=== PATIENT | male | born 1980 ===

== ENCOUNTER 2016-11-13 17:42 | Emergency (ER) | payer SELFPAY ==
[2016-11-13] MEDS ORDERED: Amoxicillin/Clavulanate TAB* 875 MG PO ONE (19:08)
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
== END 2016-11-13 19:25 | disposition home or self-care (01) ==
LOC: UCEAST 17:42
DX: S01.112A Laceration without foreign body of left eyelid and periocular area, initial encounter (principal); W22.8XXA Striking against or struck by other objects, initial encounter; Y93.9 Activity, unspecified; Y92.79 Other farm location as the place of occurrence of the external cause; Y99.0 Civilian activity done for income or pay; F17.210 Nicotine dependence, cigarettes, uncomplicated
CPT/HCPCS: 12011; 99202; A9270-GY; G0463

== ENCOUNTER 2018-06-20 07:43 | Emergency (ER) | payer OTHER ==
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
--- NOTE | 2018-06-20 08:29 | RAD ---
INDICATION: Chest pain. COMPARISON: There are no prior studies available for comparison. TECHNIQUE: Dual-energy inspiratory, expiratory and lateral films of the chest were obtained. FINDINGS: The heart is within normal limits in size. Mediastinal and hilar contours appear within normal limits. The lungs are clear. No pleural effusion or pneumothorax is seen. There is deformity of the medial right clavicle possibly related to an old healed fracture. IMPRESSION: NO EVIDENCE FOR ACTIVE CARDIOPULMONARY DISEASE.
[2018-06-20] MEDS ORDERED: Al Hydrox/Mg Hydrox/Simet LIQ* 30 ML UDC PO ONE (08:38)
[2018-06-20 09:10] VITALS: BP 104/53
== END 2018-06-20 10:06 | disposition home health service (06) ==
LOC: UCEAST 07:43
DX: R07.89 Other chest pain (principal); R50.9 Fever, unspecified; K21.9 Gastro-esophageal reflux disease without esophagitis; F17.200 Nicotine dependence, unspecified, uncomplicated
CPT/HCPCS: 71046; 93005; 99212; A9270-GY; G0463

== ENCOUNTER 2018-06-20 12:36 | Emergency (ER) | payer OTHER ==
[2018-06-20] MEDS ORDERED: Ketorolac INJ* 30 MG/ML 1 ML VIAL IV PUSH ONE (12:59)
[2018-06-20 13:13] LABS: ABS Basophils 0 10^3/ul (0-0.2); ABS Eosinophils 0 10^3/ul (0-0.6); ABS Lymphocytes 1.1 10^3/ul (1.0-4.8); ABS Monocytes 0.7 10^3/ul (0-0.8); ABS Neutrophils 5.3 10^3/ul (1.5-7.7); ABS Nucleated RBC 0 10^3/ul; Eosinophil % 0.1 % (0-6); Hematocrit 43 % (42-52); Hemoglobin 14.7 g/dl (14.0-18.0); Lymphocyte % 14.8 % (25-47); Mean Corpuscular HGB Conc 34 g/dl (31-36); Mean Corpuscular Hemoglobin 30 pg (27-31); Mean Corpuscular Volume 87 fL (80-94); Mean Platelet Volume 7.9 um3 (7.4-10.4); Nucleated Red Blood Cells % 0.2; Platelet Count 220 10^3/ul (150-450); Red Blood Count 4.97 10^6/ul (4.00-5.40); Red Cell Distribution Width 13 % (10.5-15); White Blood Count 7.2 10^3/ul (3.5-10.8)
[2018-06-20 13:35] LABS: INR 1.06 (0.77-1.02)
[2018-06-20 13:44] LABS: EGFR Non-African American 142.5 (>60)
--- NOTE | 2018-06-20 13:54 | ED ---
HPI Chest Pain - HPI Summary HPI Summary: This is scribe Timurnathaniel Hughes documenting for attending Rajinder Sorensen MD. A 38 y/o male presents to ED c/o mid-sternum chest pain/pressure. As per triage , "pt c/o mid sternal pain pt states has been building for a couple days, woke up in the night and was extreme". According to the patient, he has been experiencing severe chest pain since 0200. Additional symptoms include SOB, chills, and intermittent fever (on and Thursday, 2-3 days ago) with a temperature of 102 F. He describes the chest pain as he feels like his sternum is cracked. Initially, he thought he pulled a muscle, but the symptoms never subsided as with movement and deep breathes aggravates the pain. Patient denies any abdominal pain and swelling in legs. Furthermore, the pain was in his spine , neck and shoulder area, but then radiated to his chest. He also has nausea, vomiting and a headache. PMHx of ticks. The patient decreased his oral intake, and vomited at 0300 with only drinking water. No daily medications. PMHx of bone surgery and kidney stones. FHx MA (mother's side) and multiple myeloma ( father). SHx of no smoking, occasional ETOH, no recreational drugs. No known allergies. I, Dr. Sorensen personally performed the services described in this documentation as scribed in my presence and it is both accurate and complete. - History of Current Complaint Chief Complaint: EDChestPainROMI Time Seen by Provider: 06/20/18 12:52 Hx Obtained From: Patient Onset/Duration: Started Days Ago, Still Present Timing: Constant Initial Severity: Moderate Current Severity: Moderate Pain Intensity: 6 Pain Scale Used: 0-10 Numeric Chest Pain Location: Mid Sternal Chest Pain Radiates: Yes Chest Pain Radiates To:: Back, Shoulder, Neck Character: Pressure/Squeezing Aggravating Factor(s): Movement, Deep Breaths Alleviating Factor(s): Nothing Associated Signs and Symptoms: Positive: Chest Pain, Headaches, Shortness of Breath, Fever, Chills, Diaphoresis, Nausea, Vomiting - Allergy/Home Medications Allergies/Adverse Reactions: Allergies Allergy/AdvReac Type Severity Reaction Status Date / Time No Known Allergies Allergy Verified 06/20/18 12:44 Home Medications: Home Medications NK [No Home Medications Reported] 06/20/18 [History Confirmed 06/20/18] PMH/Surg Hx/FS Hx/Imm Hx Endocrine/Hematology History: Denies: Hx Diabetes, Hx Thyroid Disease Cardiovascular History: Denies: Hx Hypertension Respiratory History: Denies: Hx Asthma, Hx Chronic Obstructive Pulmonary Disease (COPD) GI History: Denies: Hx Ulcer - Surgical History Surgery Procedure, Year, and Place: FRACTURES Infectious Disease History: No Infectious Disease History: Denies: Hx Hepatitis, Hx Human Immunodeficiency Virus (HIV), Traveled Outside the [place] in Last 30 Days - Family History Known Family History: Positive: Other - cancer Negative: Cardiac Disease, Hypertension, Diabetes - Social History Alcohol Use: Occasionally Substance Use Type: Reports: None Smoking Status (MU): Light Every Day Tobacco Smoker Review of Systems Positive: Fever, Chills Positive: Chest Pain Positive: Shortness Of Breath Positive: Vomiting, Nausea. Negative: Abdominal Pain Positive: Other - NEGATIVE: Swelling in legs Positive: Headache All Other Systems Reviewed And Are Negative: Yes Physical Exam - Summary Physical Exam Summary: VITAL SIGNS: Reviewed. GENERAL: Patient is a well-developed and nourished male who is lying comfortable in the stretcher. Patient is not in any acute respiratory distress. HEAD AND FACE: No signs of trauma. No ecchymosis, hematomas or skull depressions. No sinus tenderness. EYES: PERRLA, EOMI x 2, No injected conjunctiva, no nystagmus. EARS: Hearing grossly intact. Ear canals and tympanic membranes are within normal limits. MOUTH: Oropharynx within normal limits. NECK: Supple, trachea is midline, no adenopathy, no JVD, no carotid bruit, no c- spine tenderness, neck with full ROM. CHEST: Chest pain reproducable with palpation LUNGS: Clear to auscultation bilaterally. No wheezing or crackles. CVS: Regular rate and rhythm, S1 and S2 present, no murmurs or gallops appreciated. ABDOMEN: Soft, non-tender. No signs of distention. No rebound no guarding, and no masses palpated. Bowel sounds are normal. EXTREMITIES: FROM in all major joints, no edema, no cyanosis or clubbing. NEURO: Alert and oriented x 3. No acute neurological deficits. Speech is normal and follows commands. SKIN: Dry and warm Triage Information Reviewed: Yes Vital Signs On Initial Exam: Initial Vitals Temp Pulse Resp BP Pulse Ox 98.3 F 90 16 123/73 98 06/20/18 12:44 06/20/18 12:44 06/20/18 12:44 06/20/18 12:44 06/20/18 12:44 Vital Signs Reviewed: Yes Diagnostics - Vital Signs Vital Signs Temp Pulse Resp BP Pulse Ox 06/20/18 12:44 98.3 F 90 16 123/73 98 - Laboratory Lab Results: Lab Results 06/20/18 06/20/18 06/20/18 Range/Units 13:03 13:03 13:03 WBC 7.2 (3.5-10.8) 10^3/ul RBC 4.97 (4.00-5.40) 10^6/ul Hgb 14.7 (14.0-18.0) g/dl Hct 43 (42-52) % MCV 87 (80-94) fL MCH 30 (27-31) pg MCHC 34 (31-36) g/dl RDW 13 (10.5-15) % Plt Count 220 (150-450) 10^3/ul MPV 7.9 (7.4-10.4) um3 Neut % (Auto) 74.3 (38-83) % Lymph % (Auto) 14.8 L (25-47) % Peach % (Auto) 10.3 H (0-7) % Eos % (Auto) 0.1 (0-6) % Baso % (Auto) 0.5 (0-2) % Absolute Neuts (auto) 5.3 (1.5-7.7) 10^3/ul Absolute Lymphs (auto) 1.1 (1.0-4.8) 10^3/ul Absolute Monos (auto) 0.7 (0-0.8) 10^3/ul Absolute Eos (auto) 0 (0-0.6) 10^3/ul Absolute Basos (auto) 0 (0-0.2) 10^3/ul Absolute Nucleated RBC 0 10^3/ul Nucleated RBC % 0.2 INR (Anticoag Therapy) 1.06 H (0.77-1.02) APTT 30.4 (26.0-36.3) seconds Sodium 138 (135-145) mmol/L Potassium 3.7 (3.5-5.0) mmol/L Chloride 105 (101-111) mmol/L Carbon Dioxide 25 (22-32) mmol/L Anion Gap 8 (2-11) mmol/L BUN 7 (6-24) mg/dL Creatinine 0.63 L (0.67-1.17) mg/dL Est GFR ( Amer) 172.5 (>60) Est GFR (Non-Af Amer) 142.5 (>60) BUN/Creatinine Ratio 11.1 (8-20) Glucose 108 H (70-100) mg/dL Lactic Acid (0.5-2.0) mmol/L Calcium 9.0 (8.6-10.3) mg/dL Magnesium 1.9 (1.9-2.7) mg/dL Total Bilirubin 0.90 (0.2-1.0) mg/dL AST 21 (13-39) U/L ALT 29 (7-52) U/L Alkaline Phosphatase 50 (34-104) U/L Total Creatine Kinase 38 (10-223) U/L CK-MB (CK-2) Pending Troponin I Pending Total Protein 7.2 (6.4-8.9) g/dL Albumin 4.4 (3.2-5.2) g/dL Globulin 2.8 (2-4) g/dL Albumin/Globulin Ratio 1.6 (1-3) TSH Pending 06/20/18 Range/Units 13:03 WBC (3.5-10.8) 10^3/ul RBC (4.00-5.40) 10^6/ul Hgb (14.0-18.0) g/dl Hct (42-52) % MCV (80-94) fL MCH (27-31) pg MCHC (31-36) g/dl RDW (10.5-15) % Plt Count (150-450) 10^3/ul MPV (7.4-10.4) um3 Neut % (Auto) (38-83) % Lymph % (Auto) (25-47) % Peach % (Auto) (0-7) % Eos % (Auto) (0-6) % Baso % (Auto) (0-2) % Absolute Neuts (auto) (1.5-7.7) 10^3/ul Absolute Lymphs (auto) (1.0-4.8) 10^3/ul Absolute Monos (auto) (0-0.8) 10^3/ul Absolute Eos (auto) (0-0.6) 10^3/ul Absolute Basos (auto) (0-0.2) 10^3/ul Absolute Nucleated RBC 10^3/ul Nucleated RBC % INR (Anticoag Therapy) (0.77-1.02) APTT (26.0-36.3) seconds Sodium (135-145) mmol/L Potassium (3.5-5.0) mmol/L Chloride (101-111) mmol/L Carbon Dioxide (22-32) mmol/L Anion Gap (2-11) mmol/L BUN (6-24) mg/dL Creatinine (0.67-1.17) mg/dL Est GFR ( Amer) (>60) Est GFR (Non-Af Amer) (>60) BUN/Creatinine Ratio (8-20) Glucose (70-100) mg/dL Lactic Acid 0.7 (0.5-2.0) mmol/L Calcium (8.6-10.3) mg/dL Magnesium (1.9-2.7) mg/dL Total Bilirubin (0.2-1.0) mg/dL AST (13-39) U/L ALT (7-52) U/L Alkaline Phosphatase (34-104) U/L Total Creatine Kinase (10-223) U/L CK-MB (CK-2) Troponin I Total Protein (6.4-8.9) g/dL Albumin (3.2-5.2) g/dL Globulin (2-4) g/dL Albumin/Globulin Ratio (1-3) TSH Result Diagrams: 06/20/18 13:03 06/20/18 13:03 Lab Statement: Any lab studies that have been ordered have been reviewed, and results considered in the medical decision making process. - EKG 1307 Cardiac Rate: NL - 74 BPM EKG Rhythm: Sinus Rhythm EKG Interpretation: No ST elevation, T-wave impression in 3, negative STEMI EKG Comparison: No Significant Change - 06/20/2018 Chest Pain Course/Dx - Course Course Of Treatment: The patient was found to have increased BP in [facility] [place] ED. The patient will follow up with PCP for better control of BP. Assessment/Plan: This patient is a 38-year-old male who presents to the emergency department with chief complaint of chest pain. Patient reports that a couple days ago he developed fevers went up to 102 which subsided however now the patient has developed chest pain. The chest pain is in the retrosternal area with no radiation. The chest pain is about an 8 out of 10. He reports a pressure pain as stated with stabbing pain. The pain gets worse when he takes a deep breath. He has no past medical history except for kidney stones. Blood test results are without any significant abnormality, troponin is 0.00. In the ED course and the patient was placed in a scooping machine tender, IV access was declined by patient. He was given Toradol for the retrosternal reproducible chest pain. Chest x-ray impression: no acute cardiopulmonary pathology. Second troponin 4 hours apart is also 0.00. Patient reports that after he took the Toradol the symptoms have significantly improved. The pain right now is only 2/10. I discussed all the findings and test results with the patient. Patient was instructed to return to the emergency room immediately if any of the symptoms return or worsens. Plan of care was discussed with the patient and he understands and agrees. All questions were answered to patient satisfaction. There were no further complaints or concerns. Lung exam before discharge: CTA B/L. Good air exchange. No wheezing or crackles heard. CVS: S1 and S2 present. No murmurs appreciated. Patient is alert and oriented x 3. Patient is hemodynamically stable. Patient will be discharged home with follow up PCP in the next 2-3 days - Chest Pain Differential Diagnosis/HQI/PQRI: Acute MA, ACS, Angina, CHF, Chest Wall, GI Disease, Lower Respiratory Infection - Diagnoses Provider Diagnoses: Chest pain Discharge - Sign-Out/Discharge Documenting (check all that apply): Patient Departure - DISCHARGE - Discharge Plan Condition: Stable Disposition: HOME Patient Education Materials: Chest Pain (ED) Referrals: [facility] [Outside] - 1 Week Additional Instructions: FOLLOW UP WITH YOUR PRIMARY CARE PROVIDER WITHIN ONE WEEK FOR HIGH BLOOD PRESSURE NOTED TODAY. RETURN TO ED FOR ANY WORSENING OR NEW SYMPTOMS. Attestations Scribe Attestation: This is rufus Hughes documenting for attending Rajinder Sorensen MD. User Type: Provider with Scribe Provider Attestation: The documentation recorded by the scribe accurately reflects the service I personally performed and the decisions made by me.
[2018-06-20] MEDS ORDERED: Ketorolac INJ* 60 MG/2 ML VIAL IM ONE (14:09)
[2018-06-20 16:39] LABS: Urine Appearance Clear; Urine Blood 2+ (Negative); Urine Color Yellow; Urine Ketones 1+ (Negative); Urine Protein Negative (Negative); Urine Red Blood Cell 2+(6-10/hpf) (Absent); Urine Specific Gravity 1.013 (1.010-1.030); Urine Urobilinogen Negative (Negative); Urine White Blood Cell Trace(0-5/hpf) (Absent)
[2018-06-20 16:42] VITALS: BP 118/74
== END 2018-06-20 16:40 | disposition home or self-care (01) ==
LOC: ED 12:36
DX: R07.89 Other chest pain (principal); F17.200 Nicotine dependence, unspecified, uncomplicated; Z82.49 Family history of ischemic heart disease and other diseases of the circulatory system; Z80.7 Family history of other malignant neoplasms of lymphoid, hematopoietic and related tissues; Z87.442 Personal history of urinary calculi
CPT/HCPCS: 36415; 80053; 81003; 81015; 82550; 82553; 83605; 83735; 83880; 84443; 84484; 85025; 85379; 85610; 85730; 86618; 87086; 93005; 96372; 99282; J1885